=== PATIENT | female | born 1990 | race Two or more races ===

== ENCOUNTER 2022-08-15 13:29 | Emergency (ER) | payer BC ==
[~2022-08-15] VITALS: Ht 172.7 cm; Wt 53.1 kg
[2022-08-15 13:45] VITALS: BP 127/79
--- NOTE | 2022-08-15 13:48 | NUR ---
[facility] c/o abdominal pain and bleeding r/o taking 4 misoprostol vaginally as prescribe by obgyn per patient. stable vitals signs no signs and symptoms of any distress
[2022-08-15] MEDS ORDERED: IV NS 0.9% 1,000 ML BAG IV ONE (14:00)
--- NOTE | 2022-08-15 14:00 | NUR ---
ATTEMPTED TO START AN IV LINE BUT PATIENT REFUSED EVEN AFTER EXPLAINING THE IMPORTANCE OF HAVING ONE. MD MADE AWARE. CARE CONTINUES
--- NOTE | 2022-08-15 14:13 | NUR ---
Patient eloped from facility without being seen by EMD. ER MD notified.
== END 2022-08-15 14:17 | disposition left against medical advice (07) ==
LOC: ER 13:35
DX: R10.9 Unspecified abdominal pain (principal)